=== PATIENT | female | born 1980 | race Caucasian/White ===

== ENCOUNTER 2018-07-07 16:04 | Emergency (ER) | payer OTHER ==
[~2018-07-07] VITALS: Ht 157.5 cm; Wt 61.2 kg
[~2018-07-07 16:04] MED LIST: HYDROCODONE-AP1 EAC6 PO; IBUPROFEN 800800 M1 PO; VICODIN 5-5001 EACH PO
[2018-07-07] MEDS ORDERED: NORCO 5-325 TA1 EACH PO (16:16)
[2018-07-07] MEDS ORDERED: MEDROLDOSEPACK PO (16:16)
[2018-07-07] MEDS ORDERED: ROBAXIN 750 MG750 M1 PO (16:16)
[2018-07-07 16:44] VITALS: BP 171/102
== END 2018-07-07 16:45 | disposition home or self-care (01) ==
LOC: M.ERS 16:04
DX: M54.5 Low back pain (principal); Z88.0 Allergy status to penicillin